=== PATIENT | female | born 1995 | race Asian ===

== ENCOUNTER → 2016-07-19 | Outpatient (CLI) | payer OTHER ==
[2016-07-19 12:41] LABS: THYROID STIMULATING HORMONE 4.99 uIu/ml (0.300-4.500)
== END | disposition home or self-care (01) ==
LOC: C.LAB1850 09:34
PROVIDERS: ATTEND Physician Assistant
DX: E89.0 Postprocedural hypothyroidism (principal)

== ENCOUNTER → 2017-03-16 | Outpatient (CLI) | payer OTHER ==
[2017-03-16 13:50] LABS: THYROID STIMULATING HORMONE < 0.005 uIu/ml (0.300-4.500)
== END | disposition home or self-care (01) ==
LOC: C.LAB1850 11:48
PROVIDERS: ATTEND Internal Medicine Endocrinology, Diabetes & Metabolism
DX: E89.0 Postprocedural hypothyroidism (principal)

== ENCOUNTER → 2017-04-24 | Outpatient (CLI) | payer OTHER | END | disposition home or self-care (01) | LOC: C.LAB1850 10:19 | PROVIDERS: ATTEND Internal Medicine Endocrinology, Diabetes & Metabolism | DX: E89.0 Postprocedural hypothyroidism (principal) ==

== ENCOUNTER → 2017-07-19 | Outpatient (CLI) | payer OTHER | END | disposition home or self-care (01) | LOC: C.LAB1850 09:13 | PROVIDERS: ATTEND Internal Medicine Endocrinology, Diabetes & Metabolism | DX: E89.0 Postprocedural hypothyroidism (principal); E05.00 Thyrotoxicosis with diffuse goiter without thyrotoxic crisis or storm ==

== ENCOUNTER → 2017-11-20 | Outpatient (CLI) | payer OTHER | END | disposition home or self-care (01) | LOC: C.LAB1850 08:25 | PROVIDERS: ATTEND Internal Medicine Endocrinology, Diabetes & Metabolism | DX: E89.0 Postprocedural hypothyroidism (principal) ==

== ENCOUNTER 2017-12-04 12:35 | Emergency (ER) | payer OTHER ==
[~2017-12-04] VITALS: Ht 154.9 cm; Wt 41.6 kg
[2017-12-04 12:41] VITALS: TEMP 36.9; Ht 154.9 cm; Wt 41.6 kg
[2017-12-04] MEDS ORDERED: SODIUM CHLORIDE 0.9% 1000ML 1,000 ML IV STA (12:52)
[2017-12-04 13:15] LABS: ISTAT CREATININE 0.5 mg/dl (0.6-1.3); ISTAT IONIZED CALCIUM 1.09 mmol/l (1.12-1.32); ISTAT POTASSIUM 3.1 mEq/L (3.3-5.0)
--- NOTE | 2017-12-04 13:25 | EMERGENCY ROOM VISIT NOTE ---
History Report prepared by Jeff: Yue Wakefield Under the Supervision of: Dr. Bishop Hall M.D. First contact with patient: 12:44 Chief Complaint: OTHER COMPLAINT Stated Complaint: HEAT EXHAUSTION History of Present Illness The patient is a 22 year old female who presents to the Emergency Room with complaints of an episode of possible heat exhaustion starting yesterday. The patient states that she works at [employer] and there is no AC there. She states that she believes she had a bout of heat exhaustion yesterday while there. She states that while she was driving home she started to become dizzy. She reports that shortly after she started to loose feeling in her hands and legs. The patient states that she noticed that she had some difficulty breathing and chest tightness at that time. She currently notes no chest pain or difficulty breathing. She states that she went to her PCP this morning for her symptoms and they sent her here to the ED. The patient denies loss of consciousness, falling, hitting her head, vomiting, vaginal bleeding, vaginal discharge, cough , the chance of , current numbness, and current chest pain. The patient notes that her LNMP is currently occurring. Source of History: patient Onset: yesterday Quality: other (heat exhaustion) Timing: other (episode) Modifying Factors (Worsening): other (heat) Associated Symptoms: No LOC, No cough, No chest pain (current), No vomiting , No numbness (current) Note: The patient complains of chest tightness, difficulty breathing, and dizziness. The patient denies falling, hitting her head, vaginal bleeding, vaginal discharge, and the chance of . Review of Systems See HPI for pertinent positives and negatives. A total of ten systems were reviewed and were otherwise negative. Past Medical & Surgical Medical Problems: (1) Asthma (2) History of pneumonia (3) Hx of bronchitis (4) Hyperthyroidism Surgical Problems: (1) Hx of wisdom tooth extraction Family History Autoimmune disorder Social History Smoking Status: Never Smoker Smokeless Tobacco Use: No Alcohol Use: none Marital Status: single Housing Status: lives alone Occupation Status: employed Current/Historical Medications Scheduled Amphetamine-Dextroamphetamine 20MG (Adderall 20MG), 20 MG PO QAM Fluoxetine (Prozac), 20 MG PO QAM Levothyroxine Sodium (Synthroid), 100 MCG PO QAM Norgestimate-Ethinyl Estradiol (Tri Femynor 0.18/0.215/0.25 mg-35 Mcg), 1 TAB PO HS Quetiapine Fumarate (Seroquel), 200 MG PO HS Simvastatin (Simvastatin), 10 MG PO HS Allergies Coded Allergies: No Known Allergies (Unverified , 12/04/17) Physical Exam Vital Signs Date Time Temp Pulse Resp B/P (MAP) Pulse Ox O2 Delivery O2 Flow Rate FiO2 12/04/17 13:46 77 17 151/99 98 Room Air 12/04/17 13:05 86 19 123/90 99 Room Air 12/04/17 12:41 36.9 104 16 134/93 100 Room Air Physical Exam Physical Exam GENERAL: She is oriented to person, place, and time. She appears well- developed and well-nourished. She does not appear distressed. HENT: Exam performed. Head: Normocephalic and atraumatic. Right Ear: External ear normal. No mastoid tenderness. Left Ear: External ear normal. No mastoid tenderness. Mouth/Throat: The oropharynx is clear and moist. No trismus in the jaw. No dental abscesses or uvula swelling. No oropharyngeal exudate or tonsillar abscesses. EYES: Conjunctivae and EOM are normal. Pupils are equal, round, and reactive to light. Right eye exhibits no discharge. Left eye exhibits no discharge. No scleral icterus. NECK: Normal range of motion. Neck supple. No JVD present. No spinous process tenderness present. No carotid bruit present. No rigidity. No tracheal deviation and normal range of motion present. No Brudzinski's sign and no Kernig 's sign noted. CV: Normal rate, regular rhythm, normal heart sounds and intact distal pulses. There is no peripheral edema. Palpable radial pulses bue. PULM/CHEST: Effort normal and breath sounds normal. No respiratory distress. No stridor. She has no wheezes. She has no rales. Chest Wall: She exhibits no tenderness. ABD: The abdomen is soft. Bowel sounds are normal. She has no distension. No mass is present. There is no tenderness. There is no rebound, no guarding, no Mann's sign and no tenderness at McBurney's point. Rovsig negative MUSC/SKEL: Normal range of motion. There is no peripheral edema, tenderness or deformity. LYMPH: No cervical adenopathy. NEURO: She is alert and oriented to person, place, and time. She has normal strength. No cranial nerve deficit or sensory deficit. Coordination and gait normal. GCS eye subscore is 4. GCS verbal subscore is 5. GCS motor subscore is 6. Cerebellar tests wnl. SKIN: Skin is warm and dry. She is not diaphoretic. PSYCH: She has a normal mood and affect. Behavior is normal. Judgment and thought content normal. Medical Decision & Procedures Laboratory Results Test 12/04/17 12:59 12/04/17 13:07 Total Creatine Kinase 86 U/L (26-192) Bedside Hemoglobin 15.3 g/dl (12.0-16.0) Bedside Hematocrit 45 % (37-47) Bedside Sodium 139 mEq/L (135-144) Bedside Potassium 3.1 mEq/L (3.3-5.0) Bedside Chloride 102 mEq/L (101-112) Bedside Total CO2 25 mEq/l (24-31) Anion Gap 16.0 mmol/L (16-25) Bedside Blood Urea Nitrogen 10 mg/dl (7-18) Bedside Creatinine 0.5 mg/dl (0.6-1.3) Bedside Glucose (other) 100 mg/dl (70-99) Bedside Ionized Calcium (Caleb) 1.09 mmol/l (1.12-1.32) Laboratory results reviewed by me Medications Administered Medications (Trade) Dose Ordered Sig/Vipin Route Start Time Stop Time Status Last Admin Dose Admin Sodium Chloride 1,000 ml @ 999 mls/hr Q1H1M STAT IV 12/04/17 12:52 12/04/17 13:52 DC 12/04/17 12:52 999 MLS/HR Potassium Chloride (Klor-Con M10) 40 meq NOW STAT PO 12/04/17 13:42 12/04/17 13:44 DC 12/04/17 13:51 40 MEQ ED Course 1248: The patient was evaluated in room C2B. A complete history and physical exam was performed. 1252: Ordered NSS 1000 ml @ 999 mls/hr IV. 1342: Ordered Potassium Chloride 40 meq PO. 1343: I reevaluated the patient and her vital signs were stable. Repeat abdominal exam showed no pain on palpation of the abdomen. The patient reports that she feels better after having received IV fluids. Her labs were within normal limits with the exception of minimally low potassium that as replaced here in the ED. The patient states that she is positive she is not as she is currently on her period. She will be discharged and will follow up with her PCP. DISCHARGE - Plan of care discussed with patient and questions answered. The patient was given both verbal and printed discharge instructions. The patient verbalized understanding and ability to comply. The patient is to seek outpatient follow up as noted in the discharge instructions. The patient verbalized understanding and ability to comply. The patient is discharged in stable condition. The patient was instructed to return for worsening symptoms. Medical Decision vital signs were stable. Repeat abdominal exam showed no pain on palpation of the abdomen. The patient reports that she feels better after having received IV fluids. Her labs were within normal limits with the exception of minimally low potassium that as replaced here in the ED. The patient states that she is positive she is not as she is currently on her period. She will be discharged and will follow up with her PCP. DISCHARGE - Plan of care discussed with patient and questions answered. The patient was given both verbal and printed discharge instructions. The patient verbalized understanding and ability to comply. The patient is to seek outpatient follow up as noted in the discharge instructions. The patient verbalized understanding and ability to comply. The patient is discharged in stable condition. The patient was instructed to return for worsening symptoms. Medication Reconcilliation Current Medication List: was personally reviewed by me Blood Pressure Screening Patient's blood pressure: Elevated blood pressure Blood pressure disposition: Elevated BP felt to be situational Impression Primary Impression: Heat exhaustion Additional Impression: Hypokalemia Scribe Attestation The scribe's documentation has been prepared under my direction and personally reviewed by me in its entirety. I confirm that the note above accurately reflects all work, treatment, procedures, and medical decision making performed by me. The chart was completed utilizing [employer] Speech voice recognition software. Grammatical errors, random word insertions, pronoun errors, and incomplete sentences are an occasional consequence of this system due to software limitations, ambient noise, and hardware issues. Any formal questions or concerns about the content, text, or information contained within the body of this dictation should be directly addressed to the physician for clarification. Departure Information Dispostion Home / Self-Care Referrals Gael Tran MD (PCP) Forms HOME CARE DOCUMENTATION FORM, IMPORTANT VISIT INFORMATION, WORK / SCHOOL INSTRUCTIONS Patient Instructions My [facility] Additional Instructions Return to the emergency department if you develop fever greater 100.4, muscle cramps, vomiting, or your symptoms worsen. Drink lots of fluids including water and Gatorade. Try to work in a cool environment and stay in air conditioning as much as possible while the temperature is elevated outside. Problem Qualifiers Primary Impression: Heat exhaustion Encounter type: initial encounter Qualified Codes: T67.5XXA - Heat exhaustion, unspecified, initial encounter
[2017-12-04] MEDS ORDERED: POTASSIUM CHLORIDE 10 MEQ TABCR PO STA (13:42)
[2017-12-04] MEDS ORDERED: SRQ200 PO (13:45)
[2017-12-04] MEDS ORDERED: LEVO100T PO (13:45)
[2017-12-04] MEDS ORDERED: NORG1TAB59 PO (13:45)
[2017-12-04] MEDS ORDERED: FLUO20CA35 PO (13:45)
[2017-12-04] MEDS ORDERED: ZCR10 PO (13:45)
[2017-12-04] MEDS ORDERED: AMPH20TA2 PO (13:45)
[2017-12-04 13:46] VITALS: BP 151/99; PULSE 77; O2SAT 98
== END 2017-12-04 13:59 | disposition home or self-care (01) ==
LOC: C.EDB 12:36 → C.EDC 13:59
DX: T67.5XXA Heat exhaustion, unspecified, initial encounter (principal); X30.XXXA Exposure to excessive natural heat, initial encounter; Y99.0 Civilian activity done for income or pay; E87.6 Hypokalemia; E03.9 Hypothyroidism, unspecified; Z79.3 Long term (current) use of hormonal contraceptives